=== PATIENT | male | born 1970 | race Two or more races ===

== ENCOUNTER 2024-01-30 11:07 | Emergency (ER) | payer OTHER ==
[~2024-01-30] VITALS: Ht 170.2 cm; Wt 82.6 kg
[2024-01-30] MEDS ORDERED: ACETAMINOPHEN 325 MG TABLET ONE (12:22)
[2024-01-30] MEDS ORDERED: KETOROLAC TROMETHAMINE 15 MG/ML VIAL ONE (12:22)
[2024-01-30] MEDS ORDERED: LIDOCAINE 5% (PATCH) 1 EA PATCH TP ONE (12:22)
[2024-01-30] MEDS: LIDOCAINE 5% (PATCH) 1 EA PATCH TP STA (12:32)
[2024-01-30] MEDS: ACETAMINOPHEN 325 MG TABLET PO ONE (12:32)
[2024-01-30] MEDS: KETOROLAC TROMETHAMINE 15 MG/ML VIAL IV ONE (12:34)
[2024-01-30] MEDS ORDERED: LIDO30AD10 TP (12:39)
[2024-01-30] MEDS ORDERED: CYCL5TAB PO (12:39)
[2024-01-30] MEDS ORDERED: IBUP-1955 PO (12:39)
[2024-01-30 14:30] VITALS: BP 143/88; TEMP 97.9; O2SAT 99
== END 2024-01-30 14:37 | disposition home or self-care (01) ==
LOC: ER 11:10
DX: S16.1XXA Strain of muscle, fascia and tendon at neck level, initial encounter (principal); S40.022A Contusion of left upper arm, initial encounter; Y92.410 Unspecified street and highway as the place of occurrence of the external cause; Y93.89 Activity, other specified; Y92.89 Other specified places as the place of occurrence of the external cause; Y99.8 Other external cause status
CPT/HCPCS: 99285; 96374; 72125; 71045; 73060; 73030; J1885